=== PATIENT | male | born 1970 | race Caucasian/White ===

== ENCOUNTER 2017-02-22 12:41 | Outpatient (CLI) | payer OTHER ==
--- NOTE | 2017-02-22 15:56 | MRI ---
MRI BRAIN WITH AND WITHOUT CONTRAST: 02/22/17 HISTORY: 46-year-old male with persistent headache after head injury, S06.4X0A. TECHNIQUE: Multiple sequences obtained in axial, sagittal, and coronal planes; pre and post IV injection of gado linium-based contrast agent: 20 mL of Multihance. FINDINGS: The ventricles are normal in size and configuration. There is no major intraaxial signal abnormality , restricted diffusion, abnormal intraaxial enhancement, mass, midline shift or any other mass effect , recent intraaxial hemorrhage, or extraaxial fluid collection. There is severe mucosal thickening o f the bilateral frontal, ethmoid, and sphenoid, sinuses. There is mild to moderate mucosal thickening of the bilateral maxillary sinuses. No evidence of mastoid effusion. IMPRESSION: 1. The brain is normal. 2. Severe mucosal disease of the paranasal sinuses. ROSA dimas POS: ANTHONY
== END 2017-02-22 12:42 | disposition home or self-care (01) ==
LOC: TBSIIMAG 12:41
PROVIDERS: ATTEND Neurological Surgery
DX: S09.90XA Unspecified injury of head, initial encounter (principal); J32.9 Chronic sinusitis, unspecified
CPT/HCPCS: 70553